=== PATIENT | female | born 1940 | race Caucasian/White ===

== ENCOUNTER → 2016-12-19 | Outpatient (CLI) | payer OTHER ==
--- NOTE | 2016-12-19 15:01 | MA ---
Screening Digital Mammogram With iCAD Analysis Clinical Indications: Routine screening. Technique: Standard cephalocaudal and mediolateral oblique projections were obtained. This examinatio n was processed by the iCAD computer aided detection system. Comparison: November 2015, November 2014, November 2013, October 2012, October 2011, October 2010, De melva2008. Breast density: Type B; Scattered fibroglandular densities. Findings: CAD was reviewed. No masses, suspicious calcifications or other signs of malignancy are id entified. There has been no significant change in the appearance of either breast. Impression: Negative mammogram. BI-RADS 1. Recommendation: Routine mammographic screening in one year as long as physical [facility]ativ [facility]. Negative mammography should not preclude additional workup of a clinically suspicious finding. The patient's information is entered into a reminder system with a target due date for her next mammo gram.
== END ==
LOC: BMCIMAGING 09:43
DX: Z12.31 Encounter for screening mammogram for malignant neoplasm of breast (principal)
CPT/HCPCS: G0202

== ENCOUNTER → 2017-12-04 | Outpatient (CLI) | payer OTHER | LOC: BMCIMAGING 09:55 → EDSTATUS 10:23 | PROVIDERS: ATTEND Orthopaedic Surgery | DX: Z09 Encounter for follow-up examination after completed treatment for conditions other than malignant neoplasm (principal); Z96.651 Presence of right artificial knee joint ==

== ENCOUNTER → 2017-12-20 | Outpatient (CLI) | payer OTHER | LOC: BMCIMAGING 11:57 | PROVIDERS: ATTEND Internal Medicine | DX: Z12.31 Encounter for screening mammogram for malignant neoplasm of breast (principal) ==

== ENCOUNTER → 2018-12-02 | Outpatient (CLI) | payer OTHER | LOC: BMCIMAGING 09:14 | PROVIDERS: ATTEND Podiatrist Foot & Ankle Surgery | DX: M79.672 Pain in left foot (principal); T84.038A Mechanical loosening of other internal prosthetic joint, initial encounter; M85.9 Disorder of bone density and structure, unspecified; M77.32 Calcaneal spur, left foot ==

== ENCOUNTER 2018-12-29 12:36 | Day surgery (SDC) | payer OTHER ==
[2018-12-29] MEDS ORDERED: LR 1,000 ML IV ONE (13:05)
[2018-12-29] MEDS ORDERED: ceFAZolin 1 GM/5 ML SYR ONE (13:16)
[2018-12-29] MEDS ORDERED: LIDOCAINE 2% 100 MG/5 ML SYR ONE (13:16)
[2018-12-29] MEDS ORDERED: BUPIVACAINE 0.5% 30 ML SDV ONE (13:16)
--- NOTE | 2018-12-29 13:59 | POSTANESTH ---
Post Anesthetic Evaluation Cardiovascular Status: Tx Hyper/Hypo-tension Respiratory Status: Normal, Stable Level of Consciousness/Mental Status: Can Participate in Eval, Moderately Sleepy Pain Control: Adequate, Prn Tx Ordered Nausea/Vomiting Control: Adequate, Prn Tx Ordered Complications Possibly Related to Anesthesia: None Noted
--- NOTE | 2018-12-29 14:04 | PDANEPAE ---
ANE History of Present Illness 78 yo female with multiple medical issues for L Brandan osteotomy and 2nd PIP fusion. ANE Past Medical History - Cardiovascular History Hx Hypertension: Yes Hx Arrhythmias: No Hx Chest Pain: No Hx Coronary Artery / Peripheral Vascular Disease: No Hx CHF / Valvular Disease: No Hx Palpitations: No Cardiovascular History Comment: hypercholesterolemia - Pulmonary History Hx COPD: No Hx Asthma/Reactive Airway Disease: No Hx Recent Upper Respiratory Infection: No Hx Oxygen in Use at Home: Yes O2 in Use at Home (L/minute): 2 Hx Sleep Apnea: No Sleep Apnea Screening Result - Last Documented: Negative Pulmonary History Comment: HAS USED HS OXYGEN FOR 5 YRS UNKNOWN REASON. SINUS ALLERGIES - Neurologic History Hx Cerebrovascular Accident: No Hx Seizures: No - Endocrine History Hx Diabetes: No Hypothyroid: No Hyperthyroid: No Obesity: mild - Renal History Hx Renal Disorders: No - Liver History Hx Hepatic Disorders: No - Neurological & Psychiatric Hx Hx Neurological and Psychiatric Disorders: No - Cancer History Hx Cancer: Yes Cancer History Comment: SKIN - Congenital Disorder History Hx Congenital Disorders: No - GI History GERD: moderate Hx Gastrointestinal Disorders: Yes Gastrointestinal History Comment: HX OF POLYPD - Other Health History Other Health History: RHEUMATOID ARTHRITIS 2007. NO ISSUES RELATED TO ARM PAIN, FLEXION ,EXTENSION OR ROTATION OF HEAD. PSEUDO GOUT. 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 IGLESIA BUNIONS WITH HARDWARE. IGLESIA HAMMER TOE REPAIR. LUMBAR FUSION. IGLESIA CATARACT. TONSILLECTOMY. IGLESIA CARPAL TUNNEL ANE Review of Systems Review of Systems: - Exercise capacity METS (RN): 4 METS - Systems Constitutional: Reports: no symptoms Cardiac: Reports: no symptoms Respiratory: Reports: cough (chronic cough related to post-nasal drip, no change in nature of cough recently) Muscolosketal: Reports: back pain, joint pain ANE Patient History - Allergies Allergies/Adverse Reactions: tramadol HCl [From Ultram] Allergy (Intermediate, Verified 09/09/13 14:57) Vomiting celecoxib [From Celebrex] Allergy (Mild, Verified 09/09/13 14:57) COUGH STU Inhibitors Allergy (Verified 12/29/18 13:20) - Home Medications Home Medications: Acetaminophen [Tylenol Extra Strength] 500 mg PO DAILY PRN 09/02/13 [Last Taken 09/16/13] Ascorbic Acid [Vitamin C 500 mg (OTC)] 500 mg PO DAILY 09/02/13 [Last Taken 04/23] Cholecalciferol Vit D3 [Vitamin D3 1000 units (OTC)] 1,000 unit PO DAILY [Last Taken 09/16/13] Hydrochlorothiazide [Hydrochlorothiazide 25 MG (RX)] 25 mg PO DAILY 09/02/13 [ Last Taken 12/28/18 18:00] Ibuprofen 200 mg PO DAILY PRN 09/02/13 [Last Taken 12/21/18 10:00] Methotrexate Sodium [Methotrexate] 15 mg PO MO 09/02/13 [Last Taken 12/22/18 11: 00] Ranitidine HCl [Ranitidine HCl 300 mg] 300 mg PO DAILY AT 6PM 09/02/13 [Last Taken 12/28/18 18:00] predniSONE [predniSONE] 5 mg PO PRN 09/02/13 [Last Taken Unknown] Aspirin DAILY 12/26/18 [Last Taken 12/25/18 09:00] Atorvastatin Calcium DAILY AT 6PM 12/26/18 [Last Taken Unknown] Benadryl HS 12/26/18 [Last Taken Unknown] Herbals/Supplements -Info Only DAILY 12/26/18 [Last Taken Unknown] Metoprolol Succinate 150 mg BID 12/26/18 [Last Taken 12/29/18 04:00] Remicade Inj 100 mg (*) ONCE 12/26/18 [Last Taken 11/07/18 10:00] - NPO status NPO Since - Liquids (Date): 12/28/18 NPO Since - Liquids (Time): 18:00 NPO Since - Solids (Date): 12/28/18 NPO Since - Solids (Time): 18:00 - Anes Hx Anes Hx: no prior problems - Smoking Hx Smoking Status: Never smoked Marijuana use: No - Alcohol Use Alcohol Use: Occasionally - Family Anes Hx Family Anes Hx: neg - N/A ANE Labs/Vital Signs - Vital Signs Blood Pressure: 166/93 Heart Rate: 78 Respiratory Rate: 16 O2 Sat (%): 93 Height: 162.56 cm Weight: 81.647 kg ANE Physical Exam - Airway Neck exam: decreased ROM Mallampati Score: Class 2 Mouth exam: normal dental/mouth exam - Pulmonary Pulmonary: clear to auscultation - Cardiovascular Cardiovascular: regular rate and rhythym - ASA Status ASA Status: III ANE Anesthesia Plan Anesthesia Plan: GA with mask Total IV Anesthesia: Yes
[2018-12-29] MEDS ORDERED: ceFAZolin 2 GM/DEXTROSE 100 ML IV ONE (14:53)
--- NOTE | 2018-12-29 14:55 | PDHPUP ---
History & Physical Update H&P update statement: This history and physical update is based on an assessment of the patient which was completed after admission or registration (within 24 hours), but prior to the surgery/procedure. H&P update: H&P reviewed & patient examined, no change in patient's condition since H&P completed
[2018-12-29] MEDS ORDERED: DEXAMETHASONE 4 MG/ML VIAL ONE (14:59)
[2018-12-29] MEDS ORDERED: LIDOCAINE 2% 5 ML SDV ONE (14:59)
[2018-12-29] MEDS ORDERED: fentaNYL 100 MCG/2 ML INJ ONE (15:00)
[2018-12-29] MEDS ORDERED: PROPOFOL/EMULSION 500 MG/50 ML BOTTLE IV ONE ×2 (15:00→15:04)
[2018-12-29] MEDS ORDERED: ceFAZolin 1 GM VIAL ONE ×2 (15:32)
[2018-12-29] MEDS ORDERED: PROPOFOL 200 MG/20 ML VIAL ONE (16:23)
[2018-12-29] MEDS ORDERED: NALOXONE HCL 0.4 MG/ML INJ IVP PRN ×2 (16:52)
[2018-12-29] MEDS ORDERED: ALBUTEROL 3 ML DEYVIAL IH PRN (16:52)
[2018-12-29] MEDS ORDERED: HYDROCODONE/APAP 5/325 TAB PO PRN (16:52)
[2018-12-29] MEDS ORDERED: LR 250 ML IV PRN (16:52)
[2018-12-29] MEDS ORDERED: ONDANSETRON 4 MG/2 ML VIAL IVP PRN (16:52)
[2018-12-29] MEDS ORDERED: LABETALOL HCL 5 MG/ML 20 ML MDV IVP PRN (16:52)
[2018-12-29] MEDS ORDERED: fentaNYL 100 MCG/2 ML INJ IVP PRN (16:52)
--- NOTE | 2018-12-29 17:17 | POSTOPPROG ---
Post Op Note Date of Operation: 12/29/18 Surgeon: Verona Moreno [employer] Setup Operator: None Anesthesiologist: [place] Anesthesia: Other (Specify) (Local with MAC) Pre-op Diagnosis: L 2nd Hammertoe, Predislocation syndrome, metatarsalgia, loose hardware Post-op Diagnosis: L 2nd Hammertoe, Predislocation syndrome, metatarsalgia, loose hardware Indication: 2nd MPJ dislocation and hammertoe deformity Procedure: L 2nd PIP fusion, 2nd met osteotomy, plantar plate repair, hardware removal Findings: dislocated 2nd MPJ, loos screw, arthritis 2nd MPJ Inf/Abcess present in the surg proc area at time of surgery?: No Depth: Deep Incisional (Fascial) EBL: PAT @ 250 mm Hg 70 minutes Complications: None
[2018-12-29] MEDS ORDERED: LABETALOL HCL 20 MG/4 ML INJ IVP ONE (17:19)
[2018-12-29] MEDS: LABETALOL HCL 20 MG/4 ML INJ IVP PRN ×2 (17:23→17:38)
--- NOTE | 2018-12-29 18:01 | GOP ---
[f rep st] OPERATIVE REPORT DATE OF OPERATION: 12/29/2018 SURGEON: Verona Moreno DPM ANESTHESIA: Local with monitored anesthesia care. ANESTHESIOLOGIST: Dr. Shanti Byers PREOPERATIVE DIAGNOSIS: 1. Left 2nd toe hammertoe deformity. 2. Left 2nd metatarsalgia. 3. Left 2nd metatarsal retained hardware. 4. Left predislocation syndrome with dislocation noted intraoperatively. 5. Left 2nd MPJ extensor tendon adhesions POSTOPERATIVE DIAGNOSIS: 1. Left 2nd toe hammertoe deformity. 2. Left 2nd metatarsalgia. 3. Left 2nd metatarsal retained hardware. 4. Left predislocation syndrome with dislocation noted intraoperatively. 5. Let 2nd MPJ extensor tendon adhesions PROCEDURE PERFORMED: 1. Left 2nd toe proximal interphalangeal joint fusion with K-wire fixation. 2. Left 2nd metatarsal Brandan osteotomy with screw fixation. 3. Left 2nd metatarsal hardware removal. 4. Left 2nd metatarsophalangeal joint plantar plate repair. 5. Left 2nd toe extensor tendon lengthening FINDINGS: Dislocation of the 2nd MPJ with arthritis of the joint and synovitis. ESTIMATED BLOOD LOSS: Minimal. DESCRIPTION OF PROCEDURE: Under mild sedation, the patient was brought in the operating room, placed on the operating table in supine position. Following IV sedation, local anesthesia was obtained about the left foot using 20 cc of 0.5% Marcaine plain. The foot was then scrubbed, prepped, and draped in the usual aseptic manner. A sterile pneumatic ankle tourniquet was placed about the left ankle. The foot was exsanguinated and tourniquet inflated to 250 mmHg. Attention was then directed to the left 2nd metatarsophalangeal joint and 2nd toe. The scar was ellipsed out and removed, removing the contracted scar tissue. Dissection was then carried through the scar tissue down to the level of the 2nd metatarsophalangeal joint. There was significant scar tissue in the area, which was debrided as necessary. The 2nd toe proximal phalanx was found to be sitting on top of the metatarsal head and completely dislocated. The joint was opened and a McGlamry elevator used to free adhesions about the 2nd metatarsal head. The screw was identified in the 2nd metatarsal head and removed without complication. At this point, a Brandan osteotomy was then performed through the 2nd metatarsal metaphyseal region. Once the osteotomy was complete, the 2nd metatarsal head was then pushed proximally and temporarily fixated with a K-wire. A 2nd K-wire was then inserted from dorsal to plantar across the proximal phalanx. The distractor was used to distract the joint to evaluate the plantar plate. The plantar plate was identified and found to be severely attenuated. At this point , the Scorpion device for the [employer] CPR kit was then used and a 0 FiberWire inserted into the plantar plate. This held the plantar plate nicely, although it was thinned and attenuated. The drill holes with a K-wire were then made through the proximal phalanx and the suture passer used. The plantar plate suture was then passed into the proximal phalanx and out from plantar to dorsal. The suture was then kept in position until the end could be tied. At this point, the K-wires were removed. The 2nd metatarsal head was then shifted into the appropriate position for permanent fixation. Before the Brandan osteotomy, a 2 mm snap-off screw was inserted. It was decided to use a larger 3.0 snap-off screw at the distal hole where the screw was removed. This held the osteotomy in a good position. The dorsal flange was then removed with a rongeur. The wound was then irrigated with copious sterile saline Ancef irrigation. At this point, attention was then directed to the PIPJ fusion. The head of the proximal phalanx and base of the middle phalanx were resected utilizing an oscillating bone saw. The wound was then irrigated with copious sterile saline Ancef irrigation. At this point, a 0.062 inch K-wire was then inserted through the base of the middle phalanx out the tip of the toe and then retrograded proximally through the proximal phalanx and into the 2nd metatarsal head. This held the toe in a good position with slight plantar flexion of the toe. This was evaluated under fluoroscopy and found to be in a good position. The pin was then bent, cut, and pin cap placed. At this point, it was decided to perform an extensor tendon lengthening and a Z- type tendon lengthening procedure performed. The wound was irrigated with copious sterile saline Ancef irrigation. StimuBlast bone putty was placed about the osteotomy site. The periosteum and capsule were repaired with 3-0 Vicryl. The subcuticular layer repaired with 4-0 Monocryl and the skin with 4- 0 Prolene in a horizontal and simple suture technique. The incision was dressed with xeroform, 4x4 gauze, leatha, and an Abel wrap. Tourniquet was deflated at 70 minutes. A prompt hyperemic response was noted to all digits of the left foot. The patient was then transferred to the recovery room with vital signs stable and vascular status intact. Following a period of postoperative monitoring, the patient will be discharged home, advised to ice and elevate her foot. She is advised to keep the dressing clean, dry, and intact. She is advised to ice and elevate her foot. She can weight bear on the heel of her boot. She will follow up with me in the next week for wound check and dressing change. INJECTABLES: Preop injection of 20 cc of 0.5% Marcaine plain. MATERIALS: For the 2nd metatarsal Brandan osteotomy, a 2.0 mm and 3.0 mm snap-off screws were placed across the 2nd metatarsal. For the plantar plate repair, 0 FiberWire CPR kit was used from [employer]. For the hammertoe repair, a 0.062 inch K-wire was inserted. Stimublast bone putty inserted about he 2nd metatarsal osteotomy. HEMOSTASIS: Pneumatic ankle tourniquet at 250 mmHg for 70 minutes. /[id number]/MODL MTDD
[2018-12-29 18:37] VITALS: BP 169/92
== END 2018-12-29 18:38 | disposition home or self-care (01) ==
LOC: FSGY 12:36
PROVIDERS: ATTEND Podiatrist Foot & Ankle Surgery
DX: M20.42 Other hammer toe(s) (acquired), left foot (principal); T84.127A Displacement of internal fixation device of bone of left lower leg, initial encounter; M77.42 Metatarsalgia, left foot; M65.872 Other synovitis and tenosynovitis, left ankle and foot; I10 Essential (primary) hypertension; M06.9 Rheumatoid arthritis, unspecified; E78.5 Hyperlipidemia, unspecified
CPT/HCPCS: C1713; C1762; J0690; J1100; J2001; J2704; J3010

== ENCOUNTER → 2019-01-06 | Outpatient (CLI) | payer OTHER | LOC: BMCIMAGING 07:43 | PROVIDERS: ATTEND Internal Medicine | DX: Z12.31 Encounter for screening mammogram for malignant neoplasm of breast (principal) ==

== ENCOUNTER → 2019-01-29 | Outpatient (CLI) | payer OTHER | LOC: BMCIMAGING 12:47 | PROVIDERS: ATTEND Podiatrist Foot & Ankle Surgery | DX: Z09 Encounter for follow-up examination after completed treatment for conditions other than malignant neoplasm (principal) ==

== ENCOUNTER → 2019-03-05 | Outpatient (CLI) | payer OTHER | LOC: BMCIMAGING 13:01 | PROVIDERS: ATTEND Podiatrist Foot & Ankle Surgery | DX: Z09 Encounter for follow-up examination after completed treatment for conditions other than malignant neoplasm (principal) ==

== ENCOUNTER → 2019-04-02 | Outpatient (CLI) | payer OTHER | LOC: BMCIMAGING 12:38 | PROVIDERS: ATTEND Podiatrist Foot & Ankle Surgery | DX: Z09 Encounter for follow-up examination after completed treatment for conditions other than malignant neoplasm (principal) ==

== ENCOUNTER → 2019-04-26 | Outpatient (CLI) | payer OTHER | LOC: BMCIMAGING 11:33 ==